=== PATIENT | female | born 1995 | race Two or more races ===

== ENCOUNTER 2017-02-02 20:39 | Emergency (ER) | payer OTHER ==
--- NOTE | ~2017-02-02 | ER ---
PATIENT'S NAME: GRACIA LENTZ [facility] AGE: 21 Y [address] ROOM: [place] [address] LOCATION: [facility] ADMIT DATE: 02/02/2017 ER/Outpatient Report DISCHARGE DATE: 02/02/2017 FAMILY PHYSICIAN: PHYSICIAN, NO ATTENDING PHYSICIAN: Dillon Tse TIME SEEN: 2100 hours. CHIEF COMPLAINT: Right lower quadrant pain. HISTORY OF PRESENT ILLNESS: The patient is a 21-year-old female who said over the last 2 days, she has had intermittent right lower quadrant pain. She has experienced some mild nausea and some loose stools. No fever or chills. No urinary symptoms. Pain described as a squeezing pain, also denies any vaginal discharge. ALLERGIES: NO MEDICINAL ALLERGIES. HOME MEDICATIONS: She has taken some ibuprofen. PAST MEDICAL HISTORY: Includes duodenal ulcer and depression. SURGERIES: She had a cyst removed from her abdomen and her last normal menstrual period was January 24, 2017. SOCIAL HISTORY: She is . Nonsmoker. No alcohol. REVIEW OF SYSTEMS: GENERAL: No fevers or chills. HEAD/EENT: Denies headache or sore throat. RESPIRATORY: No shortness of breath or cough. CARDIOVASCULAR: No chest pain, no palpitations. GASTROINTESTINAL: She had an intermittent right lower quadrant pain. No constipation, no vomiting, but some mild nausea. She has had couple of loose stools today. GENITOURINARY: No flank pain. No dysuria. No vaginal bleeding. PHYSICAL EXAMINATION: PATIENT'S NAME: GRACIA LENTZ [facility] AGE: 21 Y [address] ROOM: [place] [address] LOCATION: [facility] ADMIT DATE: 02/02/2017 ER/Outpatient Report DISCHARGE DATE: 02/02/2017 FAMILY PHYSICIAN: PHYSICIAN, NO ATTENDING PHYSICIAN: Dillon Tse VITAL SIGNS: She was afebrile, temperature 98.6, her respiratory rate 18, pulse 85, blood pressure 147/84, O2 saturation is 100%. GENERAL APPEARANCE: Female, no obvious distress, well nourished. HEAD/EENT: Normocephalic. Sclerae were clear. Oral membranes were moist. Teeth in good repair. LUNGS: Clear at the base. HEART: Rhythm appeared regular. ABDOMEN: Somewhat obese, but soft. There was no significant guarding or rebound. No CVA tenderness. Bowel sounds were active. LABORATORY DATA AND X-RAYS: Her test was negative. Her CMS, calcium is slightly low at 8.3, as well as her albumin and her A/G ratio. Urine was clear. No evidence of any infection. Her CBC, white count was 10, hemoglobin 12, her ANC was 6.2. ASSESSMENT: Intermittent right lower quadrant pain. PLAN: Discussed with the patient and her about doing a CT or possibly waiting another 12 hours if things do not improve. The patient and her agreed to wait and they will follow up tomorrow if pain should continue or get worse. JUAN SIMMONS FOR MD [employer]/deborah /[id number] d: 02/03/17 0203 t: 02/04/17 1822, OUTPATIENT REPORT
[~2017-02-02 20:39] MED LIST: IBUPROFEN800 MG PO; PERCOCET [ROXIC1 TAB PO; PRENATAL MULTI1 EAC3 PO; ZOLOFT50 M1 PO
[2017-02-02 21:15] LABS: BASOPHIL % 0.4 %; EOSINOPHIL # 0.1 K/uL (0.0-0.5); HEMATOCRIT 37.2 % (33.0-46.0); IMMATURE GRANULOCYTE % 0.3 %; LYMPHOCYTE # 3.1 K/uL (0.8-4.0); LYMPHOCYTE % 31.3 %; MCH 27.8 pg (27.0-34.0); MCHC 32.3 gm/dL (32.0-36.5); MCV 86.1 fl (83.0-98.0); MONOCYTE # 0.5 K/uL (0.0-1.0); MONOCYTE % 4.9 %; MPV 8.9 fl (9.4-12.4); NEUTROPHIL # (ANC) 6.2 K/uL (1.8-7.8); NEUTROPHIL % 62.1 %; NRBC % 0 /100WBC (0-0.00); PLATELET COUNT 279 K/uL (150-450); RBC 4.32 M/uL (3.50-5.00); RDW-CV 13.7 % (11.9-14.6)
[2017-02-02 21:22] LABS: BILIRUBIN URINE NEGATIVE (NEGATIVE); BLOOD URINE NEGATIVE /UL (NEGATIVE); COLOR URINE YELLOW (YELLOW); GLUCOSE URINE NEGATIVE (NEGATIVE); KETONE URINE NEGATIVE (NEGATIVE); LEUKOCYTES URINE NEGATIVE /UL (NEGATIVE); NITRITE URINE NEGATIVE (NEGATIVE); PH URINE 6.5 (4.0-8.0); PROTEIN URINE NEGATIVE (NEGATIVE); SPEC GRAVITY URINE 1.015 (1.003-1.035); TURBIDITY URINE CLEAR (CLEAR); UROBILINOGEN URINE NORMAL (NORMAL)
[2017-02-02 21:33] LABS: ALBUMIN 3.4 gm/dL (3.5-5.0); ALK PHOS 58 IU/L (33-138); ALT 17 IU/L (12-78); ANION GAP 13.7 (10.0-19.0); AST 10 IU/L (10-40); BLOOD UREA NITROGEN 10 mg/dL (6-24); CALCIUM 8.3 mg/dL (8.5-10.5); CHLORIDE 107 mMol/L (96-110); CO2 25 mMol/L (22-32); CREATININE 0.6 mg/dL (0.5-1.1); ESTIMATED GFR (MDRD EQUATION) > 60; POTASSIUM 3.7 mMol/L (3.7-5.1); SODIUM 142 mMol/L (135-145); TOTAL BILIRUBIN 0.2 mg/dL (0.0-1.5); TOTAL PROTEIN 7.4 g/dL (6.0-8.4)
== END 2017-02-02 21:55 | disposition disaster alternative care site (69) ==
LOC: GMED 20:39
PROVIDERS: Emergency Medicine
DX: R10.31 Right lower quadrant pain (principal); F32.9 Major depressive disorder, single episode, unspecified

== ENCOUNTER 2017-02-03 14:22 | Emergency (ER) | payer OTHER ==
--- NOTE | ~2017-02-03 | ER ---
PATIENT'S NAME: GRACIA LENTZ [facility] AGE: 21 Y [address] ROOM: [place] [address] LOCATION: [facility] ADMIT DATE: 02/03/2017 ER/Outpatient Report DISCHARGE DATE: 02/03/2017 FAMILY PHYSICIAN: PHYSICIAN, NO ATTENDING PHYSICIAN: Inez Miller The patient was seen on 02/03/2017 at 1538 hours with complaints of abdominal pain. HISTORY OF PRESENT ILLNESS: The patient has had right lower quadrant pain for 3 days. This initially started in her mid right abdomen as a dull ache, steadily became little more intense and more localized in the right lower quadrant. She has not had a fever. She was seen in the emergency room yesterday and had blood work and was to follow up with her primary care provider if her pain got worse. Today, she feels like the pain is more constant in nature and rather sharp. PAST MEDICAL HISTORY: Depression. PAST SURGICAL HISTORY: Two years ago, she had a laparotomy for cyst removal. She reports she had 2 or 3 large cysts. She states they were abdominal cysts and not ovarian cysts. ALLERGIES: NONE. HOME MEDICATIONS: None. She has been taking quite a bit of ibuprofen for her abdominal pain. REVIEW OF SYSTEMS: GENERAL: She denies any change in her weight. She denies any fevers. She has been working, however, this pain has become more intense. HEENT: No complaints of headache or dizziness. No upper respiratory symptoms. RESPIRATORY: She denies cough or shortness of breath. CARDIOVASCULAR: No history of chest pain or palpitations. GASTROINTESTINAL: She states she did vomit one time today and she has not had any appetite. Last bowel movement was yesterday. She has not had any diarrhea. GENITOURINARY: No genitourinary symptoms. MUSCULOSKELETAL: No pain. NEUROLOGIC: No syncope or dizziness. HEMATOLOGY: She denies any bleeding disorders. PATIENT'S NAME: GRACIA LENTZ [facility] AGE: 21 Y [address] ROOM: [place] [address] LOCATION: [facility] ADMIT DATE: 02/03/2017 ER/Outpatient Report DISCHARGE DATE: 02/03/2017 FAMILY PHYSICIAN: PHYSICIAN, NO ATTENDING PHYSICIAN: Inez Miller PHYSICAL EXAMINATION: VITAL SIGNS: Pulse 94, respiratory rate 16, temperature 98.8, blood pressure 138/88, and room air oxygen saturation 100%. GENERAL APPEARANCE: She is pink, warm, and dry. Alert and oriented. She walks upright. HEENT: Head is normocephalic. Eyes: PERRL. Ears: Not examined. Nose: Not examined. Throat: [place] without erythema or exudate. Mucous membranes are moist. NECK: Supple. No lymphadenopathy. LUNGS: Clear to anterior-posterior auscultation. No adventitious lung sounds. Respiratory effort is normal. HEART: Heart rate is regular. S1 and S2 are normal. No murmurs noted. ABDOMEN: Soft. Not distended. Bowel sounds are hypoactive in all 4 quadrants. No masses are palpable. Abdomen is tender on the right, particularly tender very low on the right. There is no rebound. Psoas is negative. Obturator is negative. EXTREMITIES: Capillary refill is less than 3 seconds. No peripheral edema. Pulses are 2+. Cranial nerves are grossly intact II through XII. LABORATORY DATA AND X-RAYS: She had labs performed yesterday, therefore today repeat of the CBC was done. White count is 7.4, hemoglobin is 12.6, hematocrit 39.7, and platelets 288. CT of the abdomen and pelvis was done. Appendix is normal. She does have a 5.9 cm right ovarian cyst. IMPRESSION AND ASSESSMENT: Right ovarian cyst. EMERGENCY DEPARTMENT COURSE: The patient declined pain medications. She had no nausea or vomiting while in the emergency room. DISPOSITION AND PLAN: She is to follow up with her primary care provider in 5 to 7 days if she is not better or sooner if she is worse. She is to follow up immediately if she has fever, severe pain, difficulty breathing, or any other concerns. It was recommended that she follow up with her [facility]OLOGIST, whom she saw a couple years ago when she had cyst as well. NORMA BARNES APRN FOR TOM BANERJEE MD DP/modl PATIENT'S NAME: GRACIA LENTZ [facility] AGE: 21 Y [address] ROOM: [place] [address] LOCATION: [facility] ADMIT DATE: 02/03/2017 ER/Outpatient Report DISCHARGE DATE: 02/03/2017 FAMILY PHYSICIAN: ESTEFANIA SHEA ATTENDING PHYSICIAN: Inez Miller /[id number] d: 02/03/17 2242 t: 02/26/17 1455, OUTPATIENT REPORT
[2017-02-03 15:00] LABS: BASOPHIL % 0.5 %; EOSINOPHIL # 0.1 K/uL (0.0-0.5); EOSINOPHIL % 1.5 %; HEMATOCRIT 39.7 % (33.0-46.0); HEMOGLOBIN 12.6 g/dL (11.0-15.0); IMMATURE GRANULOCYTE % 0.3 %; LYMPHOCYTE # 2.3 K/uL (0.8-4.0); LYMPHOCYTE % 31.5 %; MCH 27.5 pg (27.0-34.0); MCHC 31.7 gm/dL (32.0-36.5); MCV 86.7 fl (83.0-98.0); MONOCYTE # 0.4 K/uL (0.0-1.0); MONOCYTE % 5.1 %; MPV 9.3 fl (9.4-12.4); NEUTROPHIL # (ANC) 4.5 K/uL (1.8-7.8); NEUTROPHIL % 61.1 %; NRBC % 0 /100WBC (0-0.00); PLATELET COUNT 288 K/uL (150-450); RBC 4.58 M/uL (3.50-5.00); RDW-CV 13.9 % (11.9-14.6); WBC 7.4 K/uL (4.0-11.0)
== END 2017-02-03 16:37 | disposition disaster alternative care site (69) ==
LOC: GMED 14:22
PROVIDERS: Family Medicine
DX: N83.201 Unspecified ovarian cyst, right side (principal); F32.9 Major depressive disorder, single episode, unspecified

== ENCOUNTER → 2017-04-18 | Outpatient (CLI) | payer OTHER | END | disposition disaster alternative care site (69) | LOC: GRAD 15:24 | DX: M25.562 Pain in left knee (principal) ==